=== PATIENT | female | born 1990 | race Caucasian/White ===

== ENCOUNTER 2018-01-23 00:06 | Emergency (ER) | payer OTHER, SELFPAY ==
[2018-01-23 00:40] VITALS: BP 141/87; PULSE 95; RESP 15; TEMP 37.1; O2SAT 100; BMI 23.5
[2018-01-23 01:14] LABS: Bacteria Urine Few (2-10); Culture Indicated Urine Specimen Cultured; Squamous Epithelial Cell Urine 1-5 /HPF; WBC Urine 0-1/HPF (0-5/HPF)
--- NOTE | 2018-01-23 01:44 | DI.US.S_ITS ---
PROCEDURE: US OB <= 14 WEEKS FETUS INDICATIONS: intrauterine ? OUTSIDE/PRIOR DATING DATA: Last menstrual period (LMP): Unknown. LMP-based estimated date of delivery (JAYLON): Not applicable. First dating scan (date and location): 01.23.18 [facility]. Estimated date of delivery (JAYLON) from first dating scan: 09.11.18. TECHNIQUE: Real-time scanning was performed of the fetus and maternal pelvic organs, with image documentation. Endovaginal scanning was also performed to better visualize the fetus and maternal ovaries. COMPARISON: None. FINDINGS: Embryo: A single living intrauterine gestation is present, with a crown-rump length of 9 mm, corresponding to a 7 week 0 day gestation. heart rate is 140 beats per minute. Measurement variability in dating: +/- 4 weeks by LMP, +/- 7 days by mean sac diameter (use before 6 weeks gestation if crown-rump length not able to be measured), +/- 5 days by crown-rump length (up to 8 weeks 6 days gestation), +/- 7 days by crown-rump length (up to 13 weeks 6 days gestation). Maternal organs: Ovaries grossly unremarkable. Limited images through the kidneys demonstrate no hydronephrosis. IMPRESSION: 1. Single living intrauterine gestation, at estimated gestational age of 7 weeks 0 days plus or -5 days. Concordant with preliminary interpretation. Dictated by: Demi Archibald M.D. on 01/23/2018 at 9:25 Approved by: Demi Archibald M.D. on 01/23/2018 at 9:27
[2018-01-23 02:18] LABS: Add Manual Diff / Slide Review NO; Basophils Percent Auto 0.4 % (0-2); Eosinophils Percent Auto 0.8 % (2-4); Hematocrit 37.2 % (36-46); Hemoglobin 12.6 g/dL (12.0-16.0); Lymphocytes Percent Auto 25.5 % (25-40); Mean Corpuscular HGB Conc 33.8 % (30-36); Mean Corpuscular Hemoglobin 31.4 PG (26-34); Mean Corpuscular Volume 92.9 fL (80-100); Monocytes Percent Auto 8.1 % (3-14); Neutrophils Absolute Auto 9300 /uL (3000-5900); Neutrophils Percent Auto 65.2 % (50-75); Platelet Count 296 X10^3/uL (150-400); Red Blood Cell Count 4.01 X10^6/uL (4.0-5.2); Red Cell Distribution Width 12.8 % (11.6-14.8); White Blood Cell Count 14.3 X10^3/uL (4.5-11.0)
[2018-01-23 02:22] LABS: Calcium 8.8 mg/dL (8.4-10.2); Estimated Glomerular Filt Rate > 60.0 mL/min (>60); Glucose 72 mg/dL (70-100); HEMOLYSIS < 15 (0-50); Potassium 3.5 mmol/L (3.4-5.1); Sodium 139 mmol/L (137-145)
--- NOTE | 2018-01-23 03:20 | ED.FEMALEGU ---
HPI - Female Genitourinary General Chief complaint: OB/Uterine Contractions Stated complaint: 8 - 11 weeks ,pelvic cramping History of Present Illness HPI Narrative: HPI 27-year-old presents at 8 to 11 weeks gestation by LMP for evaluation of 3 days of mild bilateral lower abdominal cramping type of pain. Denies vaginal discharge, bleeding, dysuria, or urinary frequency. Has OB follow-up next week. Patient denies a history of multiparous gestations or IVF. M/S/F/SocHx notable for: for breach lie; remainder reviewed with patient and in chart. ROS: Negative constitutional, eye, cardiovascular, pulmonary, GI, , MSK, skin, neurologic, psychiatric, endocrine unless noted in the HPI. Exam Gen: pleasant, nontoxic-appearing, resting comfortably. HEENT: NC, AT, PEERL, EOMI. Resp: Clear to auscultation bilaterally, normal work of breathing, no accessory muscle usage. Card: Regular rate and rhythm with no murmurs, rubs, or gallops, extremities warm and well perfused. GI: Non-tender to palpation, no rebound tenderness or guarding, non-distended : chaperoned exam with normal female external genitalia, vaginal canal visually normal without lesions, closed cervical os. MSK: No visible deformities, strength and tone without visually appreciable deficit. Skin: Normal color with no visible lesions. Neuro: AO x 3, no facial asymmetry, vision and hearing WNL. Psych: Mood and affect appropriate. Labs / Imaging (pertinent): WBC 14.3, hemoglobin 12.6, sodium 139, potassium 3.5, hCG 64,890, UA with few (2-10 bacteria), 1-5 squamous epithelial cells, 0-1 WBCs GC, chlamydia pending Wet mount with few clue cells, no yeast, no trichomonas, many WBCs. Transabdominal Ultrasound: early single live IUP. Grossly normal ovaries on limited views, they were not measured. No free fluid. heart rate 140 bpm. MDM Previous chart, nursing note, and vitals reviewed. A: 27-year-old presents at 8 to 11 weeks gestation by LMP for evaluation of 3 days of mild bilateral lower abdominal cramping type of pain. DDx: Ectopic , threatened miscarriage, inevitable miscarriage, complete miscarriage, incomplete miscarriage, missed , vaginal/cervical lesion (including wart, trauma, tumor, ectropion, polyp). Evaluation: Exam without abdominal pain. Pelvic exam with without discernible abnormalities. Patient news take PO well pass flatus and stool at baseline. UA notable for possible asymptomatic bacteriuria, patient is not yet meet treatment criteria, urine sent for culture. Strongly doubt clinically significant acute intra-abdominal or intra-pelvic process. Ultrasound demonstrates a single live intrauterine . Given the lack of IVF or multiparous history as well as absence of appreciable discomfort no further evaluation with respect to possible ectopic is presently indicated. Patient is discharged with instructions to follow-up with her TYPE PHOTOGRAPHY SUPERVISOR and to review pending lab results. Based upon exam history suspect round ligament pain, however this is tentative at the present time. Impression: abdominal pain. (please reference below for remainder of encounter information) Related Data Home Medications Medication Instructions Recorded Confirmed No Known Home Medications 01/23/18 01/23/18 Allergies Allergy/AdvReac Type Severity Reaction Status Date / Time No Known Drug Allergies Allergy Verified 01/23/18 00:42 [facility] Social History Smoking Status: Current every day smoker Exam Initial Vital Signs Initial Vital Signs: Vital Signs Temperature 98.7 F 01/23/18 00:40 Pulse Rate 95 H 01/23/18 00:40 Respiratory Rate 15 01/23/18 00:40 Blood Pressure 141/87 H 01/23/18 00:40 Pulse Oximetry 100 01/23/18 00:40 Course Orders Ordered: ED Orders 01/23/18 00:31 Urine Culture Stat Urine Microscopic Stat 01/23/18 01:44 US OB <= 14 weeks fetus Stat 01/23/18 02:03 Basic Metabolic Panel Stat Complete Blood Count AUTO DIFF Stat HCG Quantitative Stat 01/23/18 02:22 Urinalysis and Microscopic Stat 01/23/18 02:30 Chlamydia/Gonorrhea RNA (SWAB) Stat Wet Prep Tric [facility] [place] Stat Vital Signs - 8 hr 01/23/18 00:40 Temperature 98.7 F Pulse Rate 95 H Respiratory Rate 15 Blood Pressure 141/87 H Pulse Oximetry 100 MDM - Female Genitourinary Lab Data Result diagrams: 01/23/18 02:03 01/23/18 02:03 Lab Results 01/23/18 01/23/18 01/23/18 Range/Units 00:31 02:03 02:03 WBC 14.3 H (4.5-11.0) X10^3/uL RBC 4.01 (4.0-5.2) X10^6/uL Hgb 12.6 (12.0-16.0) g/dL Hct 37.2 (36-46) % MCV 92.9 (80-100) fL MCH 31.4 (26-34) PG MCHC 33.8 (30-36) % RDW 12.8 (11.6-14.8) % Plt Count 296 (150-400) X10^3/uL Neut % (Auto) 65.2 (50-75) % Lymph % (Auto) 25.5 (25-40) % Pickett % (Auto) 8.1 (3-14) % Eos % (Auto) 0.8 L (2-4) % Baso % (Auto) 0.4 (0-2) % Neut # (Auto) 9300 H (9132-4488) /uL Sodium 139 (137-145) mmol/L Potassium 3.5 (3.4-5.1) mmol/L Chloride 103.0 (98-107) mmol/L Carbon Dioxide 24.0 (22-32) mmol/L BUN 10.0 (7-17) mg/dL Creatinine 0.50 L (0.52-1.04) mg/dL Estimated GFR > 60.0 (>60) mL/min BUN/Creatinine Ratio 20.0 (6-22) Glucose 72 (70-100) mg/dL Calcium 8.8 (8.4-10.2) mg/dL HCG, Quant 56912 mIU/mL Urine WBC 0-1/hpf (0-5/HPF) Ur Squamous Epith Cells 1-5 /hpf Urine Bacteria Few (2-10) H (None) Ur Culture Indicated? Specimen cultured Micro UA Comment Not Reportable Discharge Plan Departure Patient Disposition: Home, Self-Care Clinical Impression: Pelvic pain Activity Restrictions/Additional Instructions: You were in seen in the [facility] Emergency Department for evaluation of abdominal pain, no significant abnormalities were found on your evaluation. Please read and follow all of the instructions below. Please follow up with your TYPE PHOTOGRAPHY SUPERVISOR or family medicine physician within 36 to 48 hours for repeat evaluation. Please also follow-up in one day after discharge to obtain your pending gonorrhea, chlamydia, and your urine culture results. These will be useful for future care with your TYPE PHOTOGRAPHY SUPERVISOR. Please return immediately if you have any of the following: * Lightheadedness, shortness of breath, dizziness, chest pain. * Worsening pain. * If you are otherwise concerned about your health. If you have any new symptoms or if you are at all concerned about your health please return immediately to the emergency department. If you do not have a primary care physician, If your child does not have a primary care physician, please contact [facility], [facility] at [phone], [facility] at [phone], or [facility] at [phone] to arrange follow up care. If you have health insurance, please also contact your insurer for a list of accepting providers under your policy, you may contact these providers for further health care. Your care today was limited to identifying and treating emergent medical problems only. Many people have subtle differences in their test results that require follow up with their outpatient physician(s) to correctly determine if this represents a normal variation or concerning abnormality with respect to your specific health. The care given to you today was limited to identifying and treating emergent medical problems - you need to request a copy of all of your medical records from today's visit and follow up with your outpatient physician(s) to review both today's visit and your overall health. Prescriptions: No Action No Known Home Medications RF: 0
[2018-01-23 03:54] VITALS: BP 109/61; PULSE 78; RESP 14; TEMP 36.6; O2SAT 100
[2018-01-26 07:27] LABS: C.trachomatis RNA Not detected (Not detected); N.gonorrhoeae RNA Not detected (Not detected)
[2018-01-26 16:46] LABS: HCG Quantitative /Beta subunit 64890 mIU/mL
== END 2018-01-23 03:56 | disposition home or self-care (01) ==
PROVIDERS: Emergency Provider Emergency Medicine; PCP Family Medicine
DX: R10.9 Unspecified abdominal pain (principal); Z3A.08 8 weeks gestation of pregnancy
CPT/HCPCS: 76801; 76817; 80048; 81003; 81015; 81025; 84702; 85025; 87086; 87210; 87491; 87591; 99283; 99284

== ENCOUNTER → 2018-01-27 08:45 | Outpatient (CLI) | payer SELFPAY | PROVIDERS: PCP Family Medicine; Visit Provider Family Medicine | DX: Z34.91 Encounter for supervision of normal pregnancy, unspecified, first trimester (principal); Z3A.01 Less than 8 weeks gestation of pregnancy ==

== ENCOUNTER → 2018-02-12 11:04 | Outpatient (CLI) | payer OTHER, SELFPAY ==
[2018-02-12 11:53] LABS: Add Manual Diff / Slide Review NO; Basophils Percent Auto 0.4 % (0-2); Eosinophils Percent Auto 0.6 % (2-4); Hematocrit 39.5 % (36-46); Hemoglobin 13.4 g/dL (12.0-16.0); Lymphocytes Percent Auto 14.3 % (25-40); Mean Corpuscular HGB Conc 34.1 % (30-36); Mean Corpuscular Hemoglobin 31.5 PG (26-34); Mean Corpuscular Volume 92.4 fL (80-100); Monocytes Percent Auto 5.8 % (3-14); Neutrophils Absolute Auto 11000 /uL (3000-5900); Neutrophils Percent Auto 78.9 % (50-75); Platelet Count 316 X10^3/uL (150-400); Red Blood Cell Count 4.27 X10^6/uL (4.0-5.2); Red Cell Distribution Width 12.7 % (11.6-14.8)
[2018-02-12 12:02] LABS: Appearance Urine UA CLEAR; Bilirubin Urine UA NEGATIVE (NEGATIVE); Color Urine UA YELLOW; Glucose Urine UA NEGATIVE (Normal); Ketones Urine UA TRACE (NEGATIVE); Leukocyte Esterase Urine UA NEGATIVE (NEGATIVE); Nitrite Urine UA Negative (Negative); Occult Blood Urine UA TRACE-LYSED (Negative); Protein Urine UA NEGATIVE (Negative); Specific Gravity Urine UA 1.025 (1.000-1.035); Urobilinogen Urine UA 0.2 E.U./dL (0.2)
[2018-02-12 15:23] LABS: Hepatitis B Surface Antigen NEGATIVE s/c (NEGATIVE); Rubella Antibody IgG 15.7 IU/mL (>15)
[2018-02-12 15:39] LABS: HIV 1 and 2 Antibody NEGATIVE (NEGATIVE); Hep C Virus Ab w/Reflex Quant NEGATIVE s/c (NEGATIVE)
[2018-02-13 15:14] LABS: HSV 2 IGG AB < 0.90 index (< 0.90)
[2018-02-19 11:07] LABS: Rapid Plasma Reagin NON REACTIVE
== END ==
PROVIDERS: PCP Family Medicine; Visit Provider Family Medicine
DX: Z34.91 Encounter for supervision of normal pregnancy, unspecified, first trimester (principal); Z34.90 Encounter for supervision of normal pregnancy, unspecified, unspecified trimester
CPT/HCPCS: 36415; 80055; 81003; 86695; 86696; 86703; 86787; 86803; 86850; 86900; 86901; 87077; 87086

== ENCOUNTER → 2018-03-05 08:58 | Outpatient (CLI) | payer OTHER, SELFPAY | PROVIDERS: PCP Family Medicine; Visit Provider Family Medicine | DX: Z34.81 Encounter for supervision of other normal pregnancy, first trimester (principal); Z34.90 Encounter for supervision of normal pregnancy, unspecified, unspecified trimester | CPT/HCPCS: 36415; 84163; 84702 ==

== ENCOUNTER → 2018-03-12 16:27 | Outpatient (CLI) | payer OTHER, SELFPAY ==
[2018-03-12 18:41] LABS: Appearance Urine UA CLEAR; Bilirubin Urine UA NEGATIVE (NEGATIVE); Color Urine UA YELLOW; Glucose Urine UA NEGATIVE (Normal); Ketones Urine UA NEGATIVE (NEGATIVE); Leukocyte Esterase Urine UA 2+ (NEGATIVE); Nitrite Urine UA Negative (Negative); Occult Blood Urine UA NEGATIVE (Negative); Protein Urine UA NEGATIVE (Negative); Urobilinogen Urine UA 0.2 E.U./dL (0.2)
[2018-03-12 19:03] LABS: Squamous Epithelial Cell Urine 1-5 /HPF
[2018-03-12 19:04] LABS: Bacteria Urine Moderate (10-30); Culture Indicated Urine Specimen Cultured; RBC Urine 0-1/HPF (0-5/HPF); WBC Urine 1-5/HPF (0-5/HPF)
== END ==
PROVIDERS: PCP Family Medicine; Visit Provider Family Medicine
DX: Z34.90 Encounter for supervision of normal pregnancy, unspecified, unspecified trimester (principal)
CPT/HCPCS: 81001; 87077; 87086; 87147

== ENCOUNTER → 2018-04-12 11:00 | Outpatient (CLI) | payer OTHER, SELFPAY ==
[2018-04-12 14:23] LABS: Appearance Urine UA CLEAR; Bilirubin Urine UA NEGATIVE (NEGATIVE); Color Urine UA YELLOW; Glucose Urine UA NEGATIVE (Normal); Ketones Urine UA NEGATIVE (NEGATIVE); Leukocyte Esterase Urine UA NEGATIVE (NEGATIVE); Nitrite Urine UA Negative (Negative); Occult Blood Urine UA NEGATIVE (Negative); Protein Urine UA NEGATIVE (Negative); Specific Gravity Urine UA 1.025 (1.000-1.035); Urobilinogen Urine UA 0.2 E.U./dL (0.2)
[2018-04-12 14:43] LABS: Bacteria Urine Moderate (10-30); RBC Urine 0-1/HPF (0-5/HPF); Squamous Epithelial Cell Urine 5-10 /HPF; WBC Urine 1-5/HPF (0-5/HPF)
[2018-04-12 14:44] LABS: Culture Indicated Urine Cult Not Indicated
== END ==
PROVIDERS: PCP Family Medicine; Visit Provider Family Medicine
DX: O23.40 Unspecified infection of urinary tract in pregnancy, unspecified trimester (principal); Z3A.18 18 weeks gestation of pregnancy
CPT/HCPCS: 36415; 81001; 86336

== ENCOUNTER → 2018-04-26 12:11 | Outpatient (CLI) | payer OTHER, SELFPAY ==
--- NOTE | 2018-04-26 12:15 | DI.US.S_ITS ---
PROCEDURE: US OB >= 14 WEEKS FETUS INDICATIONS: anatomy screening OUTSIDE/PRIOR DATING DATA: Last menstrual period (LMP): Unknown. LMP-based estimated date of delivery (JAYLON): Not applicable. First dating scan (date and location): 01.23.18 [facility]. Estimated date of delivery (JAYLON) from first dating scan: 09.11.18.. TECHNIQUE: Real-time scanning was performed of the fetus, with image documentation and biometric measurements. Endovaginal scanning: No COMPARISON: None. FINDINGS: General: A single living intrauterine gestation is present. Presentation: Breech. Placenta: Placental position is posterior, without previa. Amniotic fluid index: 14.5 cm, normal range is 5-24 cm. heart rate: 168 beats per minute. Maternal cervical canal: 5.1 cm long. Normal lower limit is 2.5 cm. biometrics: Biparietal diameter: 20 weeks 3 days Head circumference: 20 weeks 2 days Abdominal circumference: 21 weeks 3 days Femur length: 20 weeks 3 days Estimated gestational age from initial scan: 20 weeks 2 days Composite gestational age from present scan: 20 weeks 5 days Estimated weight and percentile: 388 g; 81st percentile Measurement variability for biometric dating: +/- 7 days from 14 weeks to 15 weeks 6 days gestation, +/- 10 days from 16 weeks to 21 weeks 6 days gestation, +/- 2 weeks from 22 weeks to 27 weeks 6 days gestation, +/- 3 weeks for 28 weeks gestation or later. weight reference: 4500 g or EFW >90/95% is considered macrosomia or large for gestational age. EFW <10% is small for gestational age. EFW 5% or less is considered intra-uterine growth restriction. Anatomic survey: Neuro: Ventricles are non-dilated at less than 10 mm. Cisterna magna is normal at 3-11 mm. Cerebellum is normal in size and morphology. Nuchal skin fold: Normal at less than 6 mm between 14-21 weeks gestational age. Face: Nose and lips, facial profile are normal. Spine: No evidence for spina bifida. Heart: 4-chambered heart is present, with normal ventricular outflow tracts. Diaphragm: Diaphragm is intact. Stomach: Left-sided stomach is present. Kidneys: No hydronephrosis. Normal is less than 5 mm in 2nd trimester, less than 7 mm in 3rd trimester. Cord: 3-vessel cord has orthotopic insertion. Bladder: Normal in size. Extremities: All 4 extremities identified. IMPRESSION: 1. Single living IUP redemonstrated and interval growth is normal. 2. Normal anatomic survey. Dictated by: Dane MARTIN Interpreted: Maciel Gilmore MD on 04/26/2018 at 14:06 Approved by: Maciel Gilmore M.D. on 04/26/2018 at 17:01
[2018-04-28 15:49] LABS: Sequential Screen 2nd Trimeste SCREEN NEGATIVE
== END ==
PROVIDERS: PCP Family Medicine; Visit Provider Family Medicine
DX: Z36.89 Encounter for other specified antenatal screening (principal); Z3A.20 20 weeks gestation of pregnancy
CPT/HCPCS: 36415; 76811; 86336

== ENCOUNTER → 2018-05-11 11:38 | Outpatient (CLI) | payer OTHER, SELFPAY | PROVIDERS: PCP Family Medicine; Visit Provider Family Medicine | DX: O23.40 Unspecified infection of urinary tract in pregnancy, unspecified trimester (principal) | CPT/HCPCS: 87086 ==

== ENCOUNTER → 2018-06-07 12:15 | Outpatient (CLI) | payer OTHER, SELFPAY ==
[2018-06-07 16:20] LABS: Appearance Urine UA CLOUDY; Bilirubin Urine UA NEGATIVE (NEGATIVE); Color Urine UA YELLOW; Glucose Urine UA NEGATIVE (Normal); Ketones Urine UA NEGATIVE (NEGATIVE); Leukocyte Esterase Urine UA NEGATIVE (NEGATIVE); Nitrite Urine UA Negative (Negative); Occult Blood Urine UA 3+ (Negative); Protein Urine UA NEGATIVE (Negative); Urobilinogen Urine UA 0.2 E.U./dL (0.2)
[2018-06-07 16:32] LABS: RBC Urine 10-30/HPF (0-5/HPF); Squamous Epithelial Cell Urine 1-5 /HPF; WBC Urine 0-1/HPF (0-5/HPF)
[2018-06-07 16:34] LABS: Bacteria Urine Occasional (0-1); Culture Indicated Urine Cult Not Indicated
== END ==
PROVIDERS: PCP Family Medicine; Visit Provider Family Medicine
DX: R31.9 Hematuria, unspecified (principal)
CPT/HCPCS: 81001

== ENCOUNTER → 2018-06-07 12:21 | Outpatient (CLI) | payer OTHER, SELFPAY ==
[2018-06-07 13:58] LABS: Hematocrit 35.5 % (36-46); Hemoglobin 12.1 g/dL (12.0-16.0)
[2018-06-07 14:33] LABS: GTT (PREG) 1 Hour PP 50gm Dose 139 mg/dL (76-139)
== END ==
PROVIDERS: PCP Family Medicine; Visit Provider Family Medicine
DX: Z3A.26 26 weeks gestation of pregnancy (principal)
CPT/HCPCS: 36415; 81001; 82950; 85014; 85018

== ENCOUNTER → 2018-08-20 11:23 | Outpatient (CLI) | payer OTHER, SELFPAY ==
[2018-08-21 13:05] LABS: Strep Grp B PCR POS for Grp B Strep
== END ==
PROVIDERS: PCP Family Medicine; Visit Provider Family Medicine
DX: Z3A.36 36 weeks gestation of pregnancy (principal)
CPT/HCPCS: 87653

== ENCOUNTER 2018-08-27 12:14 | Observation (INO) | payer OTHER, SELFPAY ==
[2018-08-27 13:32] LABS: Bacteria Urine Few (2-10); RBC Urine 0-1/HPF (0-5/HPF); Squamous Epithelial Cell Urine 0-1 /HPF; WBC Urine 0-1/HPF (0-5/HPF)
[2018-08-27 13:53] LABS: Appearance Urine UA CLEAR; Bilirubin Urine UA NEGATIVE (NEGATIVE); Color Urine UA YELLOW; Glucose Urine UA NEGATIVE (Normal); Ketones Urine UA NEGATIVE (NEGATIVE); Leukocyte Esterase Urine UA NEGATIVE (NEGATIVE); Nitrite Urine UA NEGATIVE (Negative); Occult Blood Urine UA NEGATIVE (Negative); Protein Urine UA NEGATIVE (Negative); Specific Gravity Urine UA 1.015 (1.000-1.035); Urobilinogen Urine UA 0.2 E.U./dL (0.2)
[2018-08-27 14:10] LABS: Bacteria Urine Few (2-10); RBC Urine 0-1/HPF (0-5/HPF); Squamous Epithelial Cell Urine 0-1 /HPF; WBC Urine 0-1/HPF (0-5/HPF)
--- NOTE | 2018-08-27 14:24 | PM.OBTRLD ---
Visit Information Visit Information Date of evaluation: 08/27/18 Primary OB Provider: Lucy Chang Reason for Evaluation: Yes non-stress test non-stress test reason: other (FHT 160's in office) PFSH Surgical History History of section (Resolved) Family History Father Hypertension Mother Hypertension Social History Smoking Status: Current every day smoker Objective Labs Labs: Laboratory Results - last 24 hr 08/27/18 08/27/18 13:10 13:15 Urine Color Yellow Urine Appearance Clear Urine pH 7.0 Ur Specific Pierre Part 1.015 Urine Protein Negative Urine Glucose (UA) Negative Urine Ketones Negative Urine Occult Blood Negative Urine Nitrate Negative Urine Bilirubin Negative Urine Urobilinogen 0.2 Ur Leukocyte Esterase Negative Urine RBC 0-1/hpf D 0-1/hpf Urine WBC 0-1/hpf 0-1/hpf Ur Squamous Epith Cells 0-1 /hpf 0-1 /hpf Urine Bacteria Few (2-10) H Few (2-10) H Ur Culture Indicated? Not Reportable Not Reportable Micro UA Comment Not Reportable Not Reportable Evaluation Evaluation Baseline heart rate: 150 Variability: Moderate (11-25) monitor accelerations: Present monitor decelerations: Absent Category of Tracing: I Laboratory results: Laboratory Tests 08/27/18 08/27/18 13:10 13:15 Urine Color Yellow Urine Appearance Clear Urine pH 7.0 Ur Specific Pierre Part 1.015 Urine Protein Negative Urine Glucose (UA) Negative Urine Ketones Negative Urine Occult Blood Negative Urine Nitrate Negative Urine Bilirubin Negative Urine Urobilinogen 0.2 Ur Leukocyte Esterase Negative Urine RBC 0-1/hpf D 0-1/hpf Urine WBC 0-1/hpf 0-1/hpf Ur Squamous Epith Cells 0-1 /hpf 0-1 /hpf Urine Bacteria Few (2-10) H Few (2-10) H Ur Culture Indicated? Not Reportable Not Reportable Micro UA Comment Not Reportable Not Reportable Diagnosis, Plan/Disposition Final Diagnosis (1) 37 weeks gestation of : Current Visit: Yes Status: Acute Plan/Disposition Plan: Patient sent to the center due to FHT in the 160's persistently in the office. On the monitor heart tones are in the 150s with frequent accelerations and no decelerations. Initial blood pressure in the center was elevated however blood pressure was taken with a small cuff. Blood pressure improved with a larger (appropriately sized) cuff. Blood pressures in the office have all been normal throughout this . UA negative for protein. Patient denies any symptoms of headache, vision changes or right upper quadrant pain. Follow-up in 1 week.
== END 2018-08-27 14:20 | disposition home or self-care (01) ==
PROVIDERS: Admitting Provider Family Medicine; PCP Family Medicine; Visit Provider Family Medicine
DX: Z34.83 Encounter for supervision of other normal pregnancy, third trimester (principal); Z3A.37 37 weeks gestation of pregnancy
CPT/HCPCS: 59025; 59050; 81001; 81015; G0378; G0379

== ENCOUNTER 2018-09-03 12:51 | Outpatient (CLI) | payer OTHER, SELFPAY | END 2018-09-03 13:35 | disposition home or self-care (01) | LOC: OB 09-08 08:39 | PROVIDERS: PCP Family Medicine; Visit Provider Family Medicine | DX: Z34.83 Encounter for supervision of other normal pregnancy, third trimester (principal); Z3A.38 38 weeks gestation of pregnancy | CPT/HCPCS: 59025; G0378; G0379 ==

== ENCOUNTER 2018-09-06 05:43 | Inpatient (IN) | payer OTHER, SELFPAY ==
[2018-09-06] VITALS (11 sets, daily range): BP systolic 135–149; BP diastolic 76–93; PULSE 72–94; RESP 11–17; TEMP 35.6–36.2; O2SAT 98–100
[2018-09-06] MEDS: LACTATED RINGERS 1,000 ML 84 ML IV ×2 (06:45→08:26)
[2018-09-06 06:49] LABS: Add Manual Diff / Slide Review NO; Basophils Percent Auto 0.4 % (0-2); Eosinophils Percent Auto 0.5 % (2-4); Hemoglobin 12.3 g/dL (12.0-16.0); Lymphocytes Percent Auto 17.9 % (25-40); Mean Corpuscular HGB Conc 33.2 % (30-36); Mean Corpuscular Hemoglobin 28.8 PG (26-34); Mean Corpuscular Volume 86.8 fL (80-100); Monocytes Percent Auto 6.9 % (3-14); Neutrophils Absolute Auto 11700 /uL (1500-7000); Neutrophils Percent Auto 74.3 % (50-75); Platelet Count 262 X10^3/uL (150-400); Red Blood Cell Count 4.26 X10^6/uL (4.0-5.2); Red Cell Distribution Width 13.9 % (11.6-14.8); White Blood Cell Count 15.8 X10^3/uL (4.5-11.0)
--- NOTE | 2018-09-06 07:10 | PM.OBHP.1 ---
OB HPI Date/Time Date of admission: 09/06/18 Date Patient Seen: 09/06/18 Time Patient Seen: 07:15 History of Present Condition Chief complaint: repeat c section 40241 : 2 Para: 1 Estimated Date of Delivery: 09/11/18 Estimated Gestational Age (weeks): 39w2d Narrative: Tricia Trejo is a 28 year old at 39w2d here for repeat section. H/o for breech presentation with her first child. Indications Operative indications ( section): previous uterine surgery History of Present care: good care, initiated at week # (9 weeks), number of visits (12) and pounds weight gain (60) Dating criteria: based on 1st trimester US only Ultrasounds: normal 1st trimester US and normal mid trimester US Obstetrical complications: none Medical complications: none Preadmission Labs Blood type: O (+) positive -: Antibody screen: negative, GBS status: positive, HBsAG: negative, HIV: negative, HSV 1: positive, HSV 2: negative and RPR/VDLR: negative -: Chlamydia screen: not detected and Gonorrhea screen: not detected -: Rubella: immune and Varicella: immune HCT: 39.5 PAP: Normal Sequential screen: Normal Quad screen: Normal Urine: Gardnerella 1 hr GTT: 139 Prior (ies) History: 07/07/2011 40 weeks for breech, 8 lbs 12 oz male, spinal failed and had general Evaluation Evaluation Baseline heart rate: 130 Variability: Moderate (11-25) monitor accelerations: Present monitor decelerations: Absent Category of Tracing: I Laboratory results: Laboratory Tests 09/06/18 06:30 WBC 15.8 H RBC 4.26 Hgb 12.3 Hct 37.0 MCV 86.8 MCH 28.8 MCHC 33.2 RDW 13.9 Plt Count 262 Neut % (Auto) 74.3 Lymph % (Auto) 17.9 L Gordon % (Auto) 6.9 Eos % (Auto) 0.5 L Baso % (Auto) 0.4 Neut # (Auto) 07076 H PFSH Surgical History History of section (Resolved) Family History Father Hypertension Mother Hypertension Social History Smoking Status: Never smoker Meds Home Medications Medication Instructions Recorded Confirmed Type No Known Home Medications 09/06/18 09/06/18 History Allergies Allergy/AdvReac Type Severity Reaction Status Date / Time No Known Drug Allergies Allergy Verified 01/23/18 00:42 Review of Systems Review of Systems All systems reviewed & are unremarkable except as noted in HPI and below Exam Vital Signs (past 8 hours): - 09/06/18 07:06 Blood Pressure 139/93 H Const General: healthy appearing and comfortable HENMT Head: normal to inspection Ears: hearing grossly normal bilaterally Nose: external nose normal Mouth: oral mucosae normal Eyes General: appearance normal, both eyes and all related structures Resp Effort & Inspection: normal respiratory effort Auscultation: clear to auscultation bilaterally, no crackles and no wheezes Cardio Rate: regular rate Rhythm: regular rhythm Heart Sounds: S1 normal and S2 normal GI Other: Gravid Neuro General: alert, awake and oriented x3 Extrem General: normal to inspection and edema (trace bilateral) Objective Labs Result Diagrams: 09/06/18 06:30 Labs: Laboratory Results - last 24 hr 09/06/18 06:30 WBC 15.8 H RBC 4.26 Hgb 12.3 Hct 37.0 MCV 86.8 MCH 28.8 MCHC 33.2 RDW 13.9 Plt Count 262 Neut % (Auto) 74.3 Lymph % (Auto) 17.9 L Gordon % (Auto) 6.9 Eos % (Auto) 0.5 L Baso % (Auto) 0.4 Neut # (Auto) 68506 H Assessment and Plan (1) History of section: Current visit: Yes Status: Acute (2) 39 weeks gestation of : Current visit: Yes Status: Acute Plan: Plan: 28 year old at 39 weeks and 2 days gestation with history of prior section for breech presentation here for repeat section. Risks and benefits of procedure reviewed with patient. Consent signed and in the chart.
--- NOTE | 2018-09-06 07:28 | P.HPOB_ITS ---
OB HPI Date/Time Date of admission: 09/06/18 Date Patient Seen: 09/06/18 Time Patient Seen: 07:15 History of Present Condition Chief complaint: repeat c section 38121 : 2 Para: 1 Estimated Date of Delivery: 09/11/18 Estimated Gestational Age (weeks): 39w2d Narrative: Tricia Trejo is a 28 year old at 39w2d here for repeat section. H/o for breech presentation with her first child. Indications Operative indications ( section): previous uterine surgery History of Present care: good care, initiated at week # (9 weeks), number of visits (12) and pounds weight gain (60) Dating criteria: based on 1st trimester US only Ultrasounds: normal 1st trimester US and normal mid trimester US Obstetrical complications: none Medical complications: none Preadmission Labs Blood type: O (+) positive -: Antibody screen: negative, GBS status: positive, HBsAG: negative, HIV: negative, HSV 1: positive, HSV 2: negative and RPR/VDLR: negative -: Chlamydia screen: not detected and Gonorrhea screen: not detected -: Rubella: immune and Varicella: immune HCT: 39.5 PAP: Normal Sequential screen: Normal Quad screen: Normal Urine: Gardnerella 1 hr GTT: 139 Prior (ies) History: 07/07/2011 40 weeks for breech, 8 lbs 12 oz male, spinal failed and had general Evaluation Evaluation Baseline heart rate: 130 Variability: Moderate (11-25) monitor accelerations: Present monitor decelerations: Absent Category of Tracing: I Laboratory results: Laboratory Tests 09/06/18 06:30 WBC 15.8 H RBC 4.26 Hgb 12.3 Hct 37.0 MCV 86.8 MCH 28.8 MCHC 33.2 RDW 13.9 Plt Count 262 Neut % (Auto) 74.3 Lymph % (Auto) 17.9 L Vigo % (Auto) 6.9 Eos % (Auto) 0.5 L Baso % (Auto) 0.4 Neut # (Auto) 42774 H PFSH Surgical History History of section (Resolved) Family History Father Hypertension Mother Hypertension Social History Smoking Status: Never smoker Meds Home Medications Medication Instructions Recorded Confirmed Type No Known Home Medications 09/06/18 09/06/18 History Allergies Allergy/AdvReac Type Severity Reaction Status Date / Time No Known Drug Allergies Allergy Verified 01/23/18 00:42 Review of Systems Review of Systems All systems reviewed & are unremarkable except as noted in HPI and below Exam Vital Signs (past 8 hours): - 09/06/18 07:06 Blood Pressure 139/93 H Const General: healthy appearing and comfortable HENMT Head: normal to inspection Ears: hearing grossly normal bilaterally Nose: external nose normal Mouth: oral mucosae normal Eyes General: appearance normal, both eyes and all related structures Resp Effort & Inspection: normal respiratory effort Auscultation: clear to auscultation bilaterally, no crackles and no wheezes Cardio Rate: regular rate Rhythm: regular rhythm Heart Sounds: S1 normal and S2 normal GI Other: Gravid Neuro General: alert, awake and oriented x3 Extrem General: normal to inspection and edema (trace bilateral) Objective Labs Result Diagrams: 09/06/18 06:30 Labs: Laboratory Results - last 24 hr 09/06/18 06:30 WBC 15.8 H RBC 4.26 Hgb 12.3 Hct 37.0 MCV 86.8 MCH 28.8 MCHC 33.2 RDW 13.9 Plt Count 262 Neut % (Auto) 74.3 Lymph % (Auto) 17.9 L [place] % (Auto) 6.9 Eos % (Auto) 0.5 L Baso % (Auto) 0.4 Neut # (Auto) 26934 H Assessment and Plan (1) History of section: Current visit: Yes Status: Acute (2) 39 weeks gestation of : Current visit: Yes Status: Acute Plan: Plan: 28 year old at 39 weeks and 2 days gestation with history of prior section for breech presentation here for repeat section. Risks and benefits of procedure reviewed with patient. Consent signed and in the chart.
[2018-09-06] MEDS: CEFAZOLIN 2 GM/100 ML FROZ.PIGGY IV (07:35)
--- NOTE | 2018-09-06 08:04 | SUR.OPER ---
Supine on padded OR bed, head on pillow, arms secured on padded arm boards at <90 degrees abduction, legs uncrossed, safety belt at thigh, tape over blanket over lower legs. bump under right hip.
--- NOTE | 2018-09-06 08:34 | SUR.OPER ---
Healthy baby girl born at 0812, heart tones 140.
[2018-09-06] MEDS: HYDROMORPHONE 2 MG INJ 0.5 MG IV ×2 (09:15→09:32)
--- NOTE | 2018-09-06 09:22 | PM.OP.1 ---
Operative Date/Time/Diagnoses Date of procedure: 09/06/18 Time of procedure: 08:00 Pre-op diagnosis: Prior section 39 weeks of Post-op diagnosis: same Procedure & Clinicians Procedure: Low transverse section Same procedure as scheduled: Yes Indications: Prior section 39 weeks of Surgeon: Lucy Chang Architectural Engineer: Anila Quintanilla Anesthesia Type: Spinal Operative Notes Findings: Viable female , normal uterus, tubes and ovaries Closure Type: primary Specimen(s): other (Cord blood) Applied: catheter Estimated Blood Loss (mL): 500 Procedure in detail: The patient was taken to the operating room where she was placed in the seated position. Spinal anesthesia was administered. She was then placed in the dorsal supine position with a leftward tilt. She was prepped and draped in the usual sterile fashion. A timeout was performed. After spinal analgesia was found to be adequate, a Pfannenstiel skin incision was made 2 fingerbreadths above the pubic symphysis and carried through to the underlying layer fascia. The fascia was nicked in the midline and the incision extended bilaterally with Moore scissors. The superior aspect of the fascial incision was grasped with a Salena clamps, elevated, and the underlying rectus muscles dissected off sharply and bluntly. Attention was then turned to the inferior aspect of this incision which in a similar fashion was grasped with a Salena clamps, elevated, and the underlying rectus muscles dissected off sharply and bluntly. The rectus muscles were in the midline. The peritoneum was identified, grasped between 2 hemostats, and entered sharply with the Metzenbaum scissors. This incision was extended superiorly and inferiorly with good visualization of the bladder. The bladder blade was inserted. The vesicouterine peritoneum was identified, grasped with the pickup, and entered sharply with the Metzenbaum scissors. This incision was extended bilaterally, and the bladder flap was created digitally. The bladder blade was reinserted. The lower uterine segment was incised in a transverse fashion with the scalpel. Upon entering the amniotic sac there was a small amount clear amniotic fluid. The infant's head was delivered after application of vacuum. The remainder of the body delivered with some difficulty. There was a small amount of meconium at delivery. The cord was double clamped and cut. The infant was handed off to waiting RN and RT. The placenta was delivered manually. The uterus was cleared of all clots and debris. The uterine incision was repaired with #1 chromic in a running interlocking fashion and a second layer the same suture was used for an imbricating layer. Hemostasis was achieved. The tubes and ovaries were examined and were found to be normal. The gutters were cleared of all clots and debris. The bladder flap was reapproximated using 2-0 Vicryl in a running fashion. The parietal peritoneum was closed using 2-0 Vicryl in a running fashion. The fascia was reapproximated using 0 Vicryl in a running fashion. Subcutaneous layer was copiously irrigated with warm normal saline. 3 simple interrupted sutures of 3-0 Vicryl were placed to reapproximate the subcutaneous layer. The skin was closed with 4-0 undyed Vicryl in a subcuticular fashion. Steri-Strips were placed. An Aquacel dressing was placed. The uterus was expressed of a small amount of old blood. Sponge, lap, and instrument counts were correct. The patient tolerated the procedure well, and was taken to PACU in stable condition. Complications: none Condition: stable Disposition: PACU
--- NOTE | 2018-09-06 09:25 | P.OP_ITS ---
Operative Date/Time/Diagnoses Date of procedure: 09/06/18 Time of procedure: 08:00 Pre-op diagnosis: Prior section 39 weeks of Post-op diagnosis: same Procedure & Clinicians Procedure: Low transverse section Same procedure as scheduled: Yes Indications: Prior section 39 weeks of Surgeon: Lucy Chagn Clinical Rn: Anila Quintanilla Anesthesia Type: Spinal Operative Notes Findings: Viable female , normal uterus, tubes and ovaries Closure Type: primary Specimen(s): other (Cord blood) Applied: catheter Estimated Blood Loss (mL): 500 Procedure in detail: The patient was taken to the operating room where she was placed in the seated position. Spinal anesthesia was administered. She was then placed in the dorsal supine position with a leftward tilt. She was prepped and draped in the usual sterile fashion. A timeout was performed. After spinal analgesia was found to be adequate, a Pfannenstiel skin incision was made 2 fingerbreadths above the pubic symphysis and carried through to the underlying layer fascia. The fascia was nicked in the midline and the incision extended bilaterally with Moore scissors. The superior aspect of the fascial incision was grasped with a Salena clamps, elevated, and the underlying rectus muscles dissected off sharply and bluntly. Attention was then turned to the inferior aspect of this incision which in a similar fashion was grasped with a Salena clamps, elevated, and the underlying rectus muscles dissected off sharply and bluntly. The rectus muscles were in the midline. The peritoneum was identified, grasped between 2 hemostats, and entered sharply with the Metzenbaum scissors. This incision was extended superiorly and inferiorly with good visualization of the bladder. The bladder blade was inserted. The vesicouterine peritoneum was identified, grasped with the pickup , and entered sharply with the Metzenbaum scissors. This incision was extended bilaterally, and the bladder flap was created digitally. The bladder blade was reinserted. The lower uterine segment was incised in a transverse fashion with the scalpel. Upon entering the amniotic sac there was a small amount clear amniotic fluid. The 's head was delivered after application of vacuum. The remainder of the body delivered with some difficulty. There was a small amount of meconium at delivery. The cord was double clamped and cut. The was handed off to waiting RN and RT. The placenta was delivered manually. The uterus was cleared of all clots and debris. The uterine incision was repaired with #1 chromic in a running interlocking fashion and a second layer the same suture was used for an imbricating layer. Hemostasis was achieved. The tubes and ovaries were examined and were found to be normal. The gutters were cleared of all clots and debris. The bladder flap was reapproximated using 2-0 Vicryl in a running fashion. The parietal peritoneum was closed using 2-0 Vicryl in a running fashion. The fascia was reapproximated using 0 Vicryl in a running fashion. Subcutaneous layer was copiously irrigated with warm normal saline. 3 simple interrupted sutures of 3-0 Vicryl were placed to reapproximate the subcutaneous layer. The skin was closed with 4-0 undyed Vicryl in a subcuticular fashion. Steri-Strips were placed. An Aquacel dressing was placed. The uterus was expressed of a small amount of old blood. Sponge, lap, and instrument counts were correct. The patient tolerated the procedure well, and was taken to PACU in stable condition. Complications: none Condition: stable Disposition: PACU
--- NOTE | 2018-09-06 10:21 | SUR.PHASEI ---
Pt transferred to the center. Report to Rina. IV infusing LR. Fundus -2 per RN. Small to mod amt of blood to dong-pad. Few spots of shadow drainage to abd drsg. Pt able to wiggle feet. Spinal level L1.
[2018-09-06] MEDS: OXYCODONE/ACETAMINOPHEN 5/325 TABLET 1 TAB PO ×3 (11:13→20:24)
[2018-09-06] MEDS: KETOROLAC 30 MG/ML VIAL IV ×2 (14:41→20:24)
[2018-09-06] MEDS: LACTATED RINGERS 1,000 ML 125 ML IV (18:29)
[2018-09-06] MEDS: BUTORPHANOL 1 MG/ML VIAL 0.5 MG IV (20:23)
[2018-09-07] MEDS: OXYCODONE/ACETAMINOPHEN 5/325 TABLET 1 TAB PO ×2 (02:30→05:59)
[2018-09-07] MEDS: KETOROLAC 30 MG/ML VIAL IV ×2 (02:30→08:34)
[2018-09-07 05:07] VITALS: BP 145/88; PULSE 81; RESP 16; TEMP 36.8
[2018-09-07 06:49] LABS: Add Manual Diff / Slide Review NO; Basophils Percent Auto 0.3 % (0-2); Eosinophils Percent Auto 0.4 % (2-4); Hematocrit 33.3 % (36-46); Hemoglobin 10.9 g/dL (12.0-16.0); Lymphocytes Percent Auto 13.9 % (25-40); Mean Corpuscular HGB Conc 32.9 % (30-36); Mean Corpuscular Hemoglobin 28.6 PG (26-34); Mean Corpuscular Volume 87.1 fL (80-100); Monocytes Percent Auto 9.1 % (3-14); Neutrophils Absolute Auto 14800 /uL (1500-7000); Neutrophils Percent Auto 76.3 % (50-75); Platelet Count 241 X10^3/uL (150-400); Red Blood Cell Count 3.82 X10^6/uL (4.0-5.2); Red Cell Distribution Width 14.2 % (11.6-14.8); White Blood Cell Count 19.4 X10^3/uL (4.5-11.0)
--- NOTE | 2018-09-07 09:07 | PM.OBPN.1 ---
Subjective - OB Narrative: Patient reports she is doing well this morning. Pain is well controlled with oxycodone however she has itching possibly from the medication. Bleeding is very light. Incision with slight drainage on the bandage. She is eating, voiding and ambulating without difficulty. Working on breast-feeding though has not wanted to stay on the breast so she has been hand expressing and giving colostrum with a spoon. Date Patient Seen: 09/07/18 Time Patient Seen: 09:08 Exam Vital Signs (past 8 hours): Oxygen Delivery Method Room Air Temperature 98.8 blood pressure 134/81 heart rate 82 respirations 16 Narrative Exam Narrative: General: Awake and alert, no acute distress. HEENT: NCAT, EOMI, moist oral mucosa CV: Regular rate and rhythm, no murmurs, rubs or gallops Lungs: CTAB, no wheezes, rales, or rhonchi Abdomen: Bandage with small amount of serosanguineous drainage. Abdomen soft, nontender; bowel tones active; uterus firm 1 cm below umbilicus. Extremities: Warm, trace edema bilaterally Objective Labs Result Diagrams: 09/07/18 06:41 Labs: Laboratory Results - last 24 hr 09/06/18 09/07/18 09/07/18 06:30 06:41 06:41 WBC 19.4 H RBC 3.82 L Hgb 10.9 L Hct 33.3 L MCV 87.1 MCH 28.6 MCHC 32.9 RDW 14.2 Plt Count 241 Neut % (Auto) 76.3 H Lymph % (Auto) 13.9 L [place] % (Auto) 9.1 Eos % (Auto) 0.4 L Baso % (Auto) 0.3 Neut # (Auto) 86071 H Blood Type O Positive Antibody Screen Negative Maternal Bleed Positive H Assessment & Plan (1) History of section: Status: Acute Current Visit: Yes (2) 39 weeks gestation of : Status: Acute Current Visit: Yes (3) Status post : Status: Acute Current Visit: Yes Plan day: 1 plan OB: routine postop care Comments: Continued support, would appreciate consultation when available Anticipate discharge home tomorrow. Time Spent With Patient Total time spent is greater than 50% in coordination of care (as documented) at patient's floor/unit and/or counseling patient: less than 15 minutes
--- NOTE | 2018-09-07 09:11 | P.PNOB_ITS ---
Subjective - OB Narrative: Patient reports she is doing well this morning. Pain is well controlled with oxycodone however she has itching possibly from the medication. Bleeding is very light. Incision with slight drainage on the bandage. She is eating, voiding and ambulating without difficulty. Working on breast- feeding though has not wanted to stay on the breast so she has been hand expressing and giving colostrum with a spoon. Date Patient Seen: 09/07/18 Time Patient Seen: 09:08 Exam Vital Signs (past 8 hours): Oxygen Delivery Method Room Air Temperature 98.8 blood pressure 134/81 heart rate 82 respirations 16 Narrative Exam Narrative: General: Awake and alert, no acute distress. HEENT: NCAT, EOMI, moist oral mucosa CV: Regular rate and rhythm, no murmurs, rubs or gallops Lungs: CTAB, no wheezes, rales, or rhonchi Abdomen: Bandage with small amount of serosanguineous drainage. Abdomen soft, nontender; bowel tones active; uterus firm 1 cm below umbilicus. Extremities: Warm, trace edema bilaterally Objective Labs Result Diagrams: 09/07/18 06:41 Labs: Laboratory Results - last 24 hr 09/06/18 09/07/18 09/07/18 06:30 06:41 06:41 WBC 19.4 H RBC 3.82 L Hgb 10.9 L Hct 33.3 L MCV 87.1 MCH 28.6 MCHC 32.9 RDW 14.2 Plt Count 241 Neut % (Auto) 76.3 H Lymph % (Auto) 13.[address] [place] % (Auto) 9.1 Eos % (Auto) 0.4 L Baso % (Auto) 0.3 Neut # (Auto) 34670 H Blood Type O Positive Antibody Screen Negative Maternal Bleed Positive H Assessment & Plan (1) History of section: Status: Acute Current Visit: Yes (2) 39 weeks gestation of : Status: Acute Current Visit: Yes (3) Status post : Status: Acute Current Visit: Yes Plan day: 1 plan OB: routine postop care Comments: Continued support, would appreciate consultation when available Anticipate discharge home tomorrow. Time Spent With Patient Total time spent is greater than 50% in coordination of care (as documented) at patient's floor/unit and/or counseling patient: less than 15 minutes
[2018-09-07] MEDS: HYDROCODONE/ACET 5/325 TABLET 1 TAB PO ×3 (12:48→21:21)
[2018-09-07] MEDS: IBUPROFEN 600 MG TABLET PO ×2 (14:30→20:45)
[2018-09-07] MEDS: ONDANSETRON 4 MG ODT PO (21:20)
[2018-09-08] MEDS: HYDROCODONE/ACET 5/325 TABLET 1 TAB PO ×3 (01:09→10:59)
[2018-09-08] MEDS: ONDANSETRON 4 MG ODT PO ×2 (01:09→10:59)
[2018-09-08] MEDS: IBUPROFEN 600 MG TABLET PO ×2 (06:30→12:30)
[2018-09-08 08:51] LABS: Alanine Aminotransferase 27 IU/L (9-52); Albumin 2.9 g/dL (3.5-5.0); Alkaline Phosphatase 101 U/L (38-126); Aspartate Aminotransferase 35 IU/L (14-36); Bilirubin Total 0.4 mg/dL (0.2-1.3); Blood Urea Nitrogen 12 mg/dL (7-17); Calcium 8.4 mg/dL (8.4-10.2); Carbon Dioxide 22 mmol/L (22-32); Chloride 107 mmol/L (98-107); Estimated Glomerular Filt Rate > 60.0 mL/min (>60); Globulin 2.8 g/dL (1.7-4.1); Glucose 72 mg/dL (70-100); HEMOLYSIS < 15 (0-50); Potassium 4.1 mmol/L (3.4-5.1); Sodium 137 mmol/L (137-145); Total Protein 5.7 g/dL (6.3-8.2)
[2018-09-08 09:31] LABS: Add Manual Diff / Slide Review NO; Basophils Percent Auto 0.4 % (0-2); Eosinophils Percent Auto 1.4 % (2-4); Hematocrit 35.8 % (36-46); Hemoglobin 11.9 g/dL (12.0-16.0); Lymphocytes Percent Auto 12.2 % (25-40); Mean Corpuscular HGB Conc 33.3 % (30-36); Mean Corpuscular Hemoglobin 29.1 PG (26-34); Mean Corpuscular Volume 87.4 fL (80-100); Monocytes Percent Auto 7.7 % (3-14); Neutrophils Absolute Auto 13600 /uL (1500-7000); Neutrophils Percent Auto 78.3 % (50-75); Platelet Count 252 X10^3/uL (150-400); Red Cell Distribution Width 14.3 % (11.6-14.8); White Blood Cell Count 17.4 X10^3/uL (4.5-11.0)
--- NOTE | 2018-09-08 13:08 | PM.OBDS.1 ---
Discharge Providers Date of admission: 09/06/18 05:43 Primary care physician: Lucy Chang DO Consults: 09/06/18 10:52 Consult to Chief School Finance Officer Routine Comment: Discharge provider: Lucy Chang DO Discharge Date: 09/08/18 Summary Date Patient Seen: 09/08/18 Time Patient Seen: 12:29 Hospital Course: Patient is a 28-year-old G2 now P2 status post repeat section on 09/06/18. Surgery was uncomplicated. blood pressures have been up and down, as high as 154/92 with most in the 130s-140s/80s. Patient denies headache, right upper quadrant pain, vision changes. She has had some lower extremity edema which is improving. Preeclampsia labs were done which were all normal. She is ambulating, eating, voiding and passing flatus. Bleeding is light. Pain is well controlled with ibuprofen and hydrocodone. Oxycodone caused itching however hydrocodone caused nausea so she would prefer to go home with oxycodone. is doing well after transient tachypnea of the requiring supplemental oxygen for the first 16 hours of life. She has been attempting to breast-feed but would prefer to bottle feed at this point. Counseled patient to call for headaches, right upper quadrant pain, severe swelling, fevers, severe pain or bleeding through more than a pad an hour. She will follow up in clinic in 2 days for blood pressure check when she brings her in for a check. She is scheduled for a wound check 1 week from surgery. Exam Blood pressure 145/88 Heart rate 77 Temperature 98.9? General: Awake and alert, no acute distress. HEENT: NCAT, EOMI, moist oral mucosa CV: Regular rate and rhythm, no murmurs, rubs or gallops Lungs: CTAB, no wheezes, rales, or rhonchi Abdomen: Bandage with small amount of serosanguineous drainage unchanged from yesterday. Abdomen soft, nontender; bowel tones active; uterus firm 2 cm below umbilicus. Extremities: Warm, no edema Peripartum Data Delivery Method: Section complications: other (Hypertension without preeclampsia) Discharge Diagnosis (1) History of section: Status: Acute (2) 39 weeks gestation of : Status: Acute (3) Status post : Status: Acute Status at Discharge Functional status at discharge: independent ambulation Overall status at discharge: patient is progressing back to baseline Time Spent with Patient Total time spent providing and/or coordinating discharge services: Less than 30 minutes Objective Labs Result Diagrams: 09/08/18 08:10 09/08/18 08:10 Labs: Laboratory Results - last 24 hr 09/08/18 09/08/18 08:10 08:10 WBC 17.4 H RBC 4.10 Hgb 11.9 L Hct 35.8 L MCV 87.4 MCH 29.1 MCHC 33.3 RDW 14.3 Plt Count 252 Neut % (Auto) 78.3 H Lymph % (Auto) 12.2 L [place] % (Auto) 7.7 Eos % (Auto) 1.4 L Baso % (Auto) 0.4 Neut # (Auto) 44120 H Sodium 137 Potassium 4.1 Chloride 107 Carbon Dioxide 22 BUN 12 Creatinine 0.60 Estimated GFR > 60.0 BUN/Creatinine Ratio 20.0 Glucose 72 Calcium 8.4 Total Bilirubin 0.4 AST 35 ALT 27 Alkaline Phosphatase 101 Total Protein 5.7 L Albumin 2.9 L Globulin 2.8 Albumin/Globulin Ratio 1.0 Discharge Plan Discharge Plan Patient Disposition: Home Discharge Med Rec/Prescriptions Prescriptions: New oxycodone-acetaminophen 5-325 mg Tablet 1 tab PO Q4HR PRN (Reason: Pain, Moderate (4-6)) Qty: 20 RF: 0 ibuprofen 600 mg Tablet 600 mg PO Q6HR PRN (Reason: As Needed For Fever/Mild Pain) Qty: 30 RF: 0 ondansetron 4 mg Tablet,Disintegrating 4 mg PO Q4HR PRN (Reason: Nausea) Qty: 20 RF: 0 docusate sodium 100 mg capsule 100 mg PO DAILY PRN (Reason: constipation) Qty: 30 RF: 0 No Action No Known Home Medications RF: 0 Follow up/Referrals: Lucy Chang DO [Primary Care Provider] - 09/13/18 11:00 am (appointment at 11:00 AM) Visit Report/Discharge Packet Instructions: DI for Visit Report Forms: Stroke Signs & Symptoms Discharge Data Primary Care Provider: Lucy Chang Attending Provider: Lucy Chang Admit Date/Time: 09/06/18 05:43 Discharges patient from system. Discharge Date/Time: 09/08/18 14:12
== END 2018-09-08 14:12 | disposition home or self-care (01) | DRG 788 ==
PROVIDERS: Admitting Provider Family Medicine; PCP Family Medicine; Visit Provider Family Medicine
PROC: 10D00Z1 Extraction of Products of Conception, Low, Open Approach (ICD-10-PCS; CPT 59514; principal; 2018-09-06 07:45)
DX: O34.219 Maternal care for unspecified type scar from previous cesarean delivery (principal); Z3A.39 39 weeks gestation of pregnancy; Z37.0 Single live birth; O99.824 Streptococcus B carrier state complicating childbirth
CPT/HCPCS: 36415; 59510; 59514; 80053; 85025; 85460; 85461; 86850; 86900; 86901; 94762; J0595; J0690; J1170; J1885; J2274; J2590

== ENCOUNTER → 2018-10-22 11:48 | Outpatient (CLI) | payer OTHER, SELFPAY ==
[2018-10-22 17:27] LABS: Urine N gonorrhoeae NOT DETECTED
[2018-10-22 18:11] LABS: Urine Chlamydia NOT DETECTED
== END ==
PROVIDERS: PCP Family Medicine; Visit Provider Family Medicine
DX: Z30.09 Encounter for other general counseling and advice on contraception (principal); Z39.2 Encounter for routine postpartum follow-up
CPT/HCPCS: 87491; 87591

== ENCOUNTER → 2023-05-06 10:23 | Outpatient (CLI) | payer OTHER, SELFPAY ==
[2023-05-06 11:17] LABS: Add Manual Diff / Slide Review NO; Basophils Absolute Auto 100 /uL (0-100); Basophils Percent Auto 0.7 % (0-2); Eosinophils Absolute Auto 100 /uL (0-450); Hemoglobin 13.4 g/dL (12.0-16.0); Lymphocytes Absolute Auto 1900 /uL (1100-4500); Lymphocytes Percent Auto 26.9 % (25-40); Mean Corpuscular HGB Conc 33.6 % (30-36); Mean Corpuscular Hemoglobin 30.8 PG (26-34); Mean Corpuscular Volume 91.9 fL (80-100); Monocytes Absolute Auto 500 /uL (0-900); Neutrophils Absolute Auto 4600 /uL (1500-7000); Neutrophils Percent Auto 64.4 % (50-75); Platelet Count 316 X10^3/uL (150-400); Red Blood Cell Count 4.35 X10^6/uL (4.0-5.2); Red Cell Distribution Width 13.1 % (11.6-14.8); White Blood Cell Count 7.2 X10^3/uL (4.5-11.0)
[2023-05-06 11:59] LABS: Vitamin D 25 Hydroxy (D3) 49.9 ng/mL (30.0-100.0)
[2023-05-06 12:13] LABS: TSH w/ Reflex to FT4 1.38 uIU/mL (0.47-4.68)
[2023-05-06 13:30] LABS: Alanine Aminotransferase 17 IU/L (<35); Albumin 4.4 g/dL (3.5-5.0); Albumin Globulin Ratio 1.5 (1.0-2.8); Alkaline Phosphatase 54 U/L (38-126); Aspartate Aminotransferase 26 IU/L (14-36); BUN Creatinine Ratio 16.2 (6-22); Bilirubin Total 1.1 mg/dL (0.2-1.3); Blood Urea Nitrogen 11 mg/dL (7-17); Calcium 9.4 mg/dL (8.4-10.2); Carbon Dioxide 26 mmol/L (22-32); Chloride 105 mmol/L (98-107); Cholesterol 189 mg/dL (140-199); Estimated Glomerular Filt Rate > 60 mL/min (>60); Glucose 93 mg/dL (70-100); HDL Cholesterol 64 mg/dL (40-60); HEMOLYSIS < 15 (0-50); LDL Cholesterol Calculated 105 mg/dL (<100); Potassium 4.5 mmol/L (3.4-5.1); Sodium 139 mmol/L (137-145); Total Protein 7.4 g/dL (6.3-8.2); Triglycerides 100 mg/dL (35-150)
[2023-05-06 13:31] LABS: Hemoglobin A1C% w Est Avg Glu 4.9 % (4.0-6.0)
[2023-05-06 13:38] LABS: High Sensitivity CRP - Cardiac 0.5 mg/L (1.0-3.0)
== END ==
PROVIDERS: PCP Family Medicine; Referring Provider Family Medicine; Visit Provider Family Medicine
DX: D64.9 Anemia, unspecified (principal); E03.9 Hypothyroidism, unspecified; E55.9 Vitamin D deficiency, unspecified; E78.5 Hyperlipidemia, unspecified; R73.9 Hyperglycemia, unspecified
CPT/HCPCS: 36415; 80053; 80061; 82306; 83036; 84443; 85025; 86140

== ENCOUNTER → 2024-04-09 11:37 | Outpatient (CLI) | payer OTHER, SELFPAY ==
[2024-04-09 12:11] LABS: Add Manual Diff / Slide Review NO; Basophils Absolute Auto 100 /uL (0-100); Basophils Percent Auto 0.8 % (0-2); Eosinophils Absolute Auto 100 /uL (0-450); Eosinophils Percent Auto 0.8 % (2-4); Hematocrit 38.4 % (36-46); Lymphocytes Absolute Auto 2100 /uL (1100-4500); Mean Corpuscular HGB Conc 33.8 % (30-36); Mean Corpuscular Volume 91.5 fL (80-100); Monocytes Absolute Auto 600 /uL (0-900); Monocytes Percent Auto 7.4 % (3-14); Neutrophils Absolute Auto 5500 /uL (1500-7000); Platelet Count 326 X10^3/uL (150-400); Red Blood Cell Count 4.19 X10^6/uL (4.0-5.2); Red Cell Distribution Width 13.5 % (11.6-14.8); White Blood Cell Count 8.4 X10^3/uL (4.5-11.0)
[2024-04-09 14:39] LABS: Ferritin 16 ng/mL (6-137)
== END ==
PROVIDERS: PCP Family Medicine; Referring Provider Family Medicine; Visit Provider Family Medicine
DX: N93.9 Abnormal uterine and vaginal bleeding, unspecified (principal)
CPT/HCPCS: 36415; 82728; 85025

== ENCOUNTER → 2024-05-31 11:35 | Outpatient (CLI) | payer OTHER, SELFPAY ==
[2024-05-31 12:29] LABS: Add Manual Diff / Slide Review NO; Basophils Absolute Auto 0 /uL (0-100); Basophils Percent Auto 0.9 % (0-2); Eosinophils Absolute Auto 100 /uL (0-450); Hematocrit 38.3 % (36-46); Hemoglobin 13.1 g/dL (12.0-16.0); Lymphocytes Absolute Auto 2000 /uL (1100-4500); Lymphocytes Percent Auto 34.7 % (25-40); Mean Corpuscular HGB Conc 34.2 % (30-36); Mean Corpuscular Hemoglobin 31.3 PG (26-34); Mean Corpuscular Volume 91.6 fL (80-100); Monocytes Absolute Auto 500 /uL (0-900); Monocytes Percent Auto 9.3 % (3-14); Neutrophils Absolute Auto 3100 /uL (1500-7000); Neutrophils Percent Auto 54.1 % (50-75); Platelet Count 363 X10^3/uL (150-400); Red Blood Cell Count 4.18 X10^6/uL (4.0-5.2); Red Cell Distribution Width 13.2 % (11.6-14.8); White Blood Cell Count 5.7 X10^3/uL (4.5-11.0)
[2024-05-31 15:48] LABS: TSH w/ Reflex to FT4 0.56 uIU/mL (0.47-4.68)
[2024-05-31 15:51] LABS: Ferritin 24 ng/mL (6-137)
== END ==
PROVIDERS: PCP Family Medicine; Referring Provider Family Medicine; Visit Provider Family Medicine
DX: N92.0 Excessive and frequent menstruation with regular cycle (principal); Z97.5 Presence of (intrauterine) contraceptive device; L65.8 Other specified nonscarring hair loss
CPT/HCPCS: 36415; 82627; 82728; 84443; 85025

== ENCOUNTER → 2025-08-23 10:12 | Outpatient (CLI) | payer OTHER, SELFPAY ==
--- NOTE | 2025-08-23 10:13 | DI.RAD.S_ITS ---
PROCEDURE: XR LUMBAR SPINE 2-3V INDICATIONS: low back pain, tingling TECHNIQUE: 3 views of the lumbar spine were acquired. COMPARISON: None. FINDINGS: Bones: 5 [id number] vertebrae are present. There is mild rightward curvature of lumbar spine with apex at L4 level. No vertebral body compression fractures. No suspicious bony lesions. Soft tissues: Overlying bowel gas pattern is normal. No suspicious soft tissue calcifications. IUD is noted. IMPRESSION: No compression fracture or spondylolisthesis. Very mild rightward curvature of lumbar spine. Dictated by: Jonah Garcia M.D. on 08/23/2025 at 10:22 Approved by: Jonah Garcia M.D. on 08/23/2025 at 10:23
== END ==
PROVIDERS: PCP Family Medicine; Referring Provider Student in an Organized Health Care Education/Training Program; Visit Provider Student in an Organized Health Care Education/Training Program
DX: M54.16 Radiculopathy, lumbar region (principal)
CPT/HCPCS: 72100